=== PATIENT | female | born 1995 | race Two or more races ===

== ENCOUNTER 2024-01-05 09:55 | Observation (INO) | payer MEDICAID ==
[2024-01-05] MEDS ORDERED: PREN1TAB71 OR (11:45)
== END 2024-01-05 11:00 | disposition home or self-care (01) ==
LOC: LDRP 09:55
PROVIDERS: ADMIT Obstetrics & Gynecology; ATTEND Obstetrics & Gynecology
DX: O40.3XX0 Polyhydramnios, third trimester, not applicable or unspecified (principal); O62.9 Abnormality of forces of labor, unspecified; O26.893 Other specified pregnancy related conditions, third trimester; M79.89 Other specified soft tissue disorders; Z3A.30 30 weeks gestation of pregnancy
CPT/HCPCS: 59025; 81002; 94760; G0378

== ENCOUNTER 2024-01-09 09:09 | Observation (INO) | payer MEDICAID ==
[~2024-01-09 09:09] MED LIST: PREN1TAB71 OR
== END 2024-01-09 10:53 | disposition home or self-care (01) ==
LOC: UNDOADMOB 09:09 → LDRP 09:09
PROVIDERS: ADMIT Obstetrics & Gynecology; ATTEND Obstetrics & Gynecology
DX: O26.893 Other specified pregnancy related conditions, third trimester (principal); R51.9 Headache, unspecified; Z3A.30 30 weeks gestation of pregnancy
CPT/HCPCS: 59025; 76815; 81002; 94760; G0378

== ENCOUNTER 2024-02-26 18:32 | Observation (INO) | payer MEDICAID | END 2024-02-26 21:26 | disposition home or self-care (01) | LOC: LDRP 18:32 | PROVIDERS: ADMIT Obstetrics & Gynecology; ATTEND Obstetrics & Gynecology | DX: O62.9 Abnormality of forces of labor, unspecified (principal); O26.893 Other specified pregnancy related conditions, third trimester; R00.2 Palpitations; R10.9 Unspecified abdominal pain; Z3A.37 37 weeks gestation of pregnancy | CPT/HCPCS: 59025; 76818; 81002; 94760; G0378; 93005 ==

== ENCOUNTER 2024-03-07 10:12 | Observation (INO) | payer MEDICAID | END 2024-03-07 11:20 | disposition home or self-care (01) | LOC: UNDOADMOB 10:12 → LDRP 10:12 → UNDODISOB 11:20 | PROVIDERS: ADMIT Obstetrics & Gynecology; ATTEND Obstetrics & Gynecology | DX: O40.3XX0 Polyhydramnios, third trimester, not applicable or unspecified (principal); Z3A.38 38 weeks gestation of pregnancy | CPT/HCPCS: 59025; 76818; 81002; 94760; G0378 ==

== ENCOUNTER 2024-03-08 06:44 | Inpatient (IN) | payer MEDICAID ==
[~2024-03-08] VITALS: Ht 170.2 cm; Wt 86.2 kg
[2024-03-08] MEDS ORDERED: TERBUTALINE SULFATE 1 MG/ML 1ML VIAL SC PRN (07:00)
[2024-03-08] MEDS ORDERED: PHISODERM TOP SOLN 240ML BTL TOP PRN (07:00)
[2024-03-08] MEDS ORDERED: WITCH HAZEL-GLYCERIN PAD TOP PRN (07:00)
[2024-03-08] MEDS ORDERED: BUTORPHANOL TARTRATE 2 MG/1 ML VIAL IV PRN ×2 (07:00)
[2024-03-08] MEDS ORDERED: CARBOPROST TROMETHAMINE 250 MCG/1ML VIAL IM ONE (07:00)
[2024-03-08] MEDS ORDERED: DERMOPLAST 60ML BOTTLE TOP PRN (07:00)
[2024-03-08] MEDS ORDERED: LIDOCAINE 2%HCL (LOCAL ANESTH.) INJ 20ML MDV IJ PRN (07:00)
[2024-03-08 07:35] LABS: Basophils # (auto) 0.1 10 ^3/uL (0-0.2); Eosinophils # (auto) 0.2 10 ^3/uL (0-0.8); Hemoglobin 9.7 g/dL (12.2-16.2); Lymphocytes # (auto) 1.7 10 ^3/uL (0.4-5.4); Mean Corpuscular Hemoglobin 22.8 pg (28.0-32.0); Monocytes # (auto) 0.6 10 ^3/uL (0-1.3); Monocytes % (auto) 5.2 % (0.0-12.0)
[2024-03-08 07:37] LABS: Basophils % (auto) 0.8 % (0.0-2.0); Eosinophils % (auto) 1.7 % (0.0-7.0); Hematocrit 31.4 % (36.0-46.0); Lymphocytes % (auto) 14.3 % (10.0-50.0); Mean Corpuscular Hgb Conc. 30.9 g/dL (32.0-36.0); Mean Corpuscular Volume 73.8 fL (80.0-100.0); Nucleated Red Blood Cells % 0.1 %; Red Blood Cells 4.26 10^6/uL (4.0-5.20); Red Cell Distribution Width 17.6 % (11.8-14.3); White Blood Cell 11.6 10^3/uL (4.4-10.8)
[2024-03-08 07:41] LABS: Urine Bacteria FEW /hpf (None Seen); Urine Blood 3+ /uL (Negative); Urine Clarity Turbid (Clear); Urine Color Colorless (Yellow); Urine Mucus FEW (None Seen); Urine Protein, UAD TRACE (Negative); Urine Specific Gravity 1.015 (1.001-1.035); Urine Urobilinogen Normal (Negative); Urine WBC 92 /hpf (0 - 5)
[2024-03-08 07:51] LABS: INR 0.97 (0.9-1.15); Partial Thromboplastin Time 25.3 SEC (24.5-34.5); Prothrombin Time 10.3 sec (9.3-11.8)
[2024-03-08 07:51] LABS: Amphetamine Screen, Urine Neg (NEGATIVE); Barbiturate Scree,Urine Neg (NEGATIVE); Benzodiazephine Screen, Urine Neg (NEGATIVE); Cannabinoid Screen, Urine Neg (NEGATIVE); Cocaine Screen, Urine Neg (NEGATIVE); Opiate Scree,Urine Neg (NEGATIVE); Phencyclidine Screen, Urine Neg (NEGATIVE)
[2024-03-08 07:54] LABS: Albumin 3.5 g/dL (3.2-4.8); Alkaline Phosphatase 221 U/L (46-116); Anion Gap 10 (5-15); Aspartate Aminotransferase 12 U/L (13-40); BUN/Creatinine Ratio 11.1 (10.0-20.0); Bilirubin, Total 0.4 mg/dL (0.2-1.0); Blood Urea Nitrogen 6 mg/dL (9-23); Calcium 8.4 mg/dL (8.5-10.1); Carbon Dioxide 21 mmol/L (20-30); Chloride 107 mmol/L (98-107); Glucose 100 mg/dL (74-106); Potassium 3.5 mmol/L (3.5-5.1); Sodium 138 mmol/L (136-145); Total Protein 6.4 g/dL (5.7-8.2)
[2024-03-08 08:05] LABS: Alanine Aminotransferase < 9 U/L (7-40)
[2024-03-08] MEDS ORDERED: ePHEDrine SULFATE 50 MG/ML AMP IV ONE (08:30)
[2024-03-08] MEDS ORDERED: NALOXONE HCL 0.4 MG/ML VIAL IV ONE (08:30)
[2024-03-08] MEDS: LIDOCAINE HCL 2 %PF INJ 10ML AMP IJ ONE ×2 (09:13)
[2024-03-08] MEDS: LACTATED RINGER'S 1,000 ML IV SCH (09:15)
[2024-03-08] MEDS: LACT. RINGERS/OXYTOCIN 20UNITS 1,000 ML IV SCH (09:40)
[2024-03-08] MEDS: ROPIVACAINE HCL 200 ML ONE (09:41)
[2024-03-08] MEDS: miSOPROStol 100 mcg TAB PR PRN (15:27)
[2024-03-08] MEDS: METHYLERGONOVINE MALEATE 0.2 MG/ML AMP IM PRN (15:28)
[2024-03-08] MEDS: miSOPROStol 100 mcg TAB SL PRN (15:28)
[2024-03-08] MEDS ORDERED: ACETAMINOPHEN 325 MG TAB PO PRN (15:30)
[2024-03-08] MEDS ORDERED: ONDANSETRON ODT 4 MG TAB PO PRN (15:30)
[2024-03-08] MEDS: LACT. RINGERS/OXYTOCIN 20UNITS 500 ML IV ONE ×2 (15:37→16:17)
[2024-03-08] MEDS: IBUPROFEN 600 MG TAB PO PRN (16:05)
[2024-03-08 19:03] VITALS: BP 120/54; PULSE 109; RESP 18; O2SAT 95
[2024-03-08] MEDS: DOCUSATE SOD 100 MG CAP PO SCH (21:57)
[2024-03-08] MEDS: FERROUS SULFATE 325mg EC TAB PO SCH (21:57)
[2024-03-08] MEDS: DIPHENOXYLATE W/ATROPINE 2.5 MG TAB PO SCH (22:00)
[2024-03-08 23:08] VITALS: BP 126/56; PULSE 95; RESP 16; TEMP 98.3; O2SAT 96
[2024-03-09 03:15] VITALS: BP 112/61; PULSE 76; RESP 14; TEMP 98.3; O2SAT 98
[2024-03-09 07:00] VITALS: BP 123/84; PULSE 58; RESP 17; TEMP 97.9; O2SAT 100
[2024-03-09 11:00] VITALS: BP 116/75; PULSE 76; RESP 16; TEMP 97.8; O2SAT 98
[2024-03-09 15:04] VITALS: BP 113/68; PULSE 91; RESP 17; TEMP 97.9; O2SAT 98
[2024-03-11 18:06] LABS: Treponema pallidum Ab (FTA-Ab) Non Reactive (Non Reactive)
== END 2024-03-09 16:04 | disposition home or self-care (01) | DRG 560 ==
LOC: UNDOADMIN 06:55 → LDRP 06:55
PROVIDERS: ADMIT Obstetrics & Gynecology; ATTEND Obstetrics & Gynecology
PROC: 10E0XZZ Delivery of Products of Conception, External Approach (ICD-10-PCS; principal; 2024-03-08)
PROC: 0HQ9XZZ Repair Perineum Skin, External Approach (ICD-10-PCS; 2024-03-08)
PROC: 3E0R3BZ Introduction of Anesthetic Agent into Spinal Canal, Percutaneous Approach (ICD-10-PCS; 2024-03-08)
PROC: 00HU33Z Insertion of Infusion Device into Spinal Canal, Percutaneous Approach (ICD-10-PCS; 2024-03-08)
DX: O40.3XX0 Polyhydramnios, third trimester, not applicable or unspecified (principal); Z37.0 Single live birth; D64.9 Anemia, unspecified; O99.02 Anemia complicating childbirth; O70.0 First degree perineal laceration during delivery; Z3A.39 39 weeks gestation of pregnancy
CPT/HCPCS: 36415; 59025; 59409; 62282; 80053; 80307; 81001; 81002; 85025; 85610; 85730; 86592; 86703; 86850; 86900; 86901; 87340; 94760; 96360; 96361; 96365; 96366; 96372; G0378; J2590